=== PATIENT | female | born 1975 | race Caucasian/White ===

== ENCOUNTER 2023-11-09 11:08 | Day surgery (SDC) | payer BC ==
[~2023-11-09] VITALS: Ht 177.8 cm; Wt 95.8 kg
== END 2023-11-09 11:59 | disposition home or self-care (01) ==
LOC: SSTAY O 11:08
PROVIDERS: ATTEND Radiology Vascular & Interventional Radiology
DX: R59.1 Generalized enlarged lymph nodes (principal)
CPT/HCPCS: 76882